=== PATIENT | male | born 1935 | race Caucasian/White ===

== ENCOUNTER 2023-07-22 11:38 | Day surgery (SDC) | payer BC ==
[~2023-07-22] VITALS: Ht 165.1 cm; Wt 73.5 kg
[~2023-07-22 11:38] MED LIST: IOHEXOL 300 mgI/mL, 50 mL INFUS..BTL IV ONE; LIDOCAINE 2%, 20 ML MDV ONE; NORMAL SALINE 10 ML VIAL ONE
[2023-07-22 12:53] VITALS: O2SAT 98
[2023-07-22] MEDS ORDERED: fentaNYL CITRATE/PF 100 MCG/2 ML AMP ONE (12:57)
[2023-07-22] MEDS: DIPHENHYDRAMINE INJ 50 MG/ML VIAL ONE (14:51)
[2023-07-22] MEDS: MIDAZOLAM HCL 5 MG/5 ML VIAL ONE (14:53)
[2023-07-22 17:12] VITALS: BP_SYST 159; PULSE 66; RESP 20; TEMP 99.3
== END 2023-07-22 16:03 | disposition home or self-care (01) ==
LOC: SDS 11:38 → SMU 11:40 → SDS 16:03
PROVIDERS: ATTEND Internal Medicine
DX: M51.16 Intervertebral disc disorders with radiculopathy, lumbar region (principal); M79.10 Myalgia, unspecified site; G89.29 Other chronic pain; Z98.890 Other specified postprocedural states; Z79.899 Other long term (current) drug therapy
CPT/HCPCS: 64483; J1200; J2250; Q9967; 76000; J2001; J3010